=== PATIENT | female | born 2000 | race Caucasian/White ===

== ENCOUNTER 2025-07-20 18:25 | Emergency (ER) | payer MEDICAID, SELFPAY ==
[2025-07-20 18:51] VITALS: BP 125/85; PULSE 84; RESP 18; TEMP 37.1; O2SAT 99; BMI 37.8
--- NOTE | 2025-07-20 19:00 | XR_ITS ---
Examination: Abdomen sonogram, Limited Date and time of exam: July 20, 2023 at 1934 hours INDICATIONS: Right upper abdominal pain epigastric pain beginning 4 hours ago Technique: Real-time grajeda scale transabdominal sonographic images of the upper abdomen obtained. Findings: Negative for gallstones Gallbladder wall 0.43 cm no definite edema Common bile duct 0.3 cm Pancreatic head 1.9 cm Liver 15.2 cm fatty infiltration no focal liver lesions Normal hepatopetal portal venous flow Patent IVC IMPRESSION: Negative for gallstones Abnormally thickened gallbladder wall, clinical correlation advised, consider HIDA scan or MRCP follow-up to exclude cholecystitis
--- NOTE | 2025-07-20 19:00 | PD.EDRME ---
Rapid Medical Screening Exam [facility] Arrival date/time: 07/20/25 18:25 24F with history of marijuana use presents to ED with 1 day of RUQ/epigastric pain. Patient denies N/V, diarrhea, and dysuria. Patient is not on cycle. Mild constipation. Chief Complaint: Abdominal Pain Vital signs: Vital Signs Temperature 98.7 F 07/20/25 18:51 Pulse Rate 84 07/20/25 18:51 Respiratory Rate 18 07/20/25 18:51 Blood Pressure 125/85 H 07/20/25 18:51 Pulse Oximetry (%) 99 07/20/25 18:51 Oxygen Delivery Method Room Air 07/20/25 18:51 Exam: RUQ tenderness Clinical Impression: biliary disease vs pancreatitis vs gastritis vs gastroenteritis vs drug-adverse effect vs ab pain
[2025-07-20 19:30] LABS: Basophils # (Auto) 0.1 Thou/mm3 (0.0-0.2); Basophils % (Auto) 1 % (0-2.5); Eosinophils # (Auto) 0.0 Thou/mm3 (0.0-0.5); Eosinophils % (Auto) 0 % (0-10); Hematocrit 45.1 % (36.0-46.0); Hemoglobin 14.9 g/dL (12.0-16.0); Immature Granulocytes Auto 0.05 Thou/mm3 (0.00-0.00); Lymphocytes # (Auto) 2.6 Thou/mm3 (1.0-4.8); Lymphocytes % (Auto) 24 % (10-50); Mean Corpuscular HGB Conc 33.0 g/dl (31.0-37.0); Mean Corpuscular Hemoglobin 31.2 pg (25.0-35.0); Mean Corpuscular Volume 95 fL (80-100); Monocytes # (Auto) 0.9 Thou/mm3 (0.0-0.8); Monocytes % (Auto) 8 % (0-12); Neutrophils # (Auto) 7.0 Thou/mm3 (1.8-7.7); Neutrophils % (Auto) 66 % (37-80); Nucleated Red Blood Cell # 0.00 Thou/mm3 (0.00-0.00); Nucleated Red Blood Cell % 0 /100 WBC (0); Platelet Count 211 Thou/mm3 (140-440); RDW Standard Deviation 40.6 fL (36.4-46.3); Red Blood Count 4.77 Miln/mm3 (4.00-5.20); White Blood Count 10.6 Thou/mm3 (3.6-11.0)
[2025-07-20] MEDS: FAMOTIDINE 20 MG TABLET 40 MG PO (19:48)
[2025-07-20] MEDS: MG HYD/AL HYD/SIME (Maalox Reg) SUSP 30 ML UDC PO (19:48)
[2025-07-20 19:49] LABS: Alanine Aminotransferase 26 U/L (10-49); Albumin, Serum 4.3 gm/dL (3.5-5.0); Albumin/Globulin Ratio 1.8 (1.2-2.2); Alkaline Phosphatase 58 U/L (46-116); Anion Gap 7 (7-16); Aspartate Amino Transferase 22 U/L (0-34); BUN/Creatinine Ratio 7 Ratio (12-20); Bilirubin,Total 0.2 mg/dL (0.3-1.2); Blood Urea Nitrogen 7 mg/dL (9-23); Calcium 9.5 mg/dL (8.3-10.6); Calcium (Corrected) 9.5 mg/dL (8.5-10.1); Carbon Dioxide 30.2 mMol/L (20.0-31.0); Chloride 105 mMol/L (98-107); Creatinine (Component) 1.0 mg/dL (0.6-1.3); Estimated Creatinine Clearance 99.6 mL/min (>60); Globulin 2.4 gm/dL (2.3-3.5); Glucose 108 mg/dL (74-106); Lipase 25 U/L (12-53); Osmolality,Calculated 282 (275-295); Potassium 4.7 mMol/L (3.4-5.1); Sodium 142 mMol/L (136-145); Total Protein 6.7 gm/dL (5.7-8.2); eGFR > 60 See Note
[2025-07-20 20:04] LABS: Collection Type, Urine Clean Catch
[2025-07-20 20:18] LABS: HCG Qualitative,Urine Negative
[2025-07-20 20:20] LABS: Bacteria,Urine Rare; Bilirubin,Urine Negative (Negative); Blood,Urine Negative (Negative); Clarity,Urine Clear (Clear/Hazy); Color,Urine Lt-Yellow (Lt Yel-Yel); Culture Indicated,Urine Not Indicated; Glucose, Urine Negative (Negative); Ketones,Urine Negative (Negative); Leukocyte Esterase,Urine Negative (Negative); Nitrite,Urine Negative (Negative); PH,Urine 7.0 (5.0-7.0); Protein,Urine Negative (Neg - Trace); RBC,Urine 1 /hpf (0-3); Specific Gravity,Urine 1.014 (1.001-1.035); Squamous Epithelial Cell,Urine 5 /hpf (0-5); Urobilinogen,Urine Negative mg/dL (0.0-1.0); WBC,Urine 1 /hpf (0-5)
--- NOTE | 2025-07-20 21:03 | EDNOTE_ITS ---
ED Abdominal Pain RME/HPI General Chief Complaint: Abdominal Pain Stated complaint: EPIGASTRIC PAIN Arrival date/time: 07/20/25 18:25 RME / HPI RME / HPI narrative: 07/20/25 18:25 24F with history of marijuana use presents to ED with 1 day of RUQ/epigastric pain. Patient denies N/V, diarrhea, and dysuria. Patient is not on cycle. Mild constipation. Dr. Reinoso?s Main ED Evaluation: 24yo female with no significant past medical history presents to the ED for a chief complaint of epigastric pain x 4-5 hours. Patient describes the pain as tight in nature. No radiation or migration. Patient denies any N/V, fever, chills, heartburn, or any other associated symptoms. Patient now reports she is pain-free. NKA. Related Data Home Medications ?Medication ?Instructions ?Recorded ?Confirmed prenat.vits,june,hwo-vqxy-flnqf 1 tab PO QDAY 02/18/23 04/10/23 Allergies Allergy/AdvReac Type Severity Reaction Status Date / Time No Known Allergies Allergy Verified 07/20/25 18:28 Review of Systems Review of Systems Systems Reviewed: All systems reviewed, normal except as documented Past Medical History Past Medical History NEUROLOGIC: Negative Neurological Disorders or Seizures CARDIAC: Positive Cardiac Disorders (PIH IN PREVIOUS ); Negative Congestive Heart Failure RESPIRATORY: Negative Chronic Obstructive Pulmonary Disease (COPD) GASTROINTESTINAL: Negative Gastrointestinal Disorders or Hepatitis GENITOURINARY: Negative Genitourinary Disorders or Renal Disease REPRODUCTIVE: Positive Previous Pregnancies (X2) MUSCULOSKELETAL: Negative Musculoskeletal Disorders ENDOCRINE: Negative Endocrine Disorders, Diabetes Mellitus Type 1 or Diabetes Mellitus Type 2 HEMATOLOGIC: Negative Blood Disorders OTHER HISTORY: Positive Hospitalization (CHILDBIRTH); Negative Autoimmune Disease, Down Syndrome, Developmental Delay, Shingles, Falls, Blood Transfusions, Blood Transfusion Reaction, Anesthesia Reactions, Organ Transplant, Chemotherapy, Radiation Therapy, Hyperbaric Therapy, MRSA, VRSA, Vancomycin-Resistant Enterococci, Human Immunodeficiency Virus (HIV), Chicken Pox, Measles, Mumps, Rubella (Vietnamese Measles), Pertussis, Clostridium Difficile or Cancer Family History FAMILY HISTORY: Positive Family Cancer (MOTHER AND GRANDMOTHER-OVARIAN) and Family Surgery (MOTHER-SX D/T CANCER); Negative Family Psychiatric Problems, Family Respiratory Disorders, Family Cardiac Disorders, Family Gastrointestinal Problems or Family Anesthesia Reaction Surgical History SURGICAL: Negative Section or Organ Transplant Social History SMOKING STATUS: Current every day smoker SECOND HAND EXPOSURE: No ED Exam Narrative Physical exam: Generally patient is alert in no obvious distress, heart regular rate and rhythm, lungs clear to auscultation equal bilaterally, abdomen soft bowel sounds present nondistended nontender currently Course Quality Measures none Orders Category Date Time Status US gall bladder Stat Exams 07/20/25 19:00 Completed CBC Stat Lab 07/20/25 19:15 Completed CMP [Comprehensive Metabolic Panel] Stat Lab 07/20/25 19:15 Completed HCG Qualitative,Urine Stat Lab 07/20/25 19:51 Completed Lipase Stat Lab 07/20/25 19:15 Completed Urinalysis, C/S if Indicated Stat Lab 07/20/25 19:51 Completed Famotidine [Pepcid] Med 07/20/25 19:00 Discontinued 40 mg PO X1 ONE mg Hyd/Al Hyd/Koki Susp [Maalox Susp] Med 07/20/25 19:00 Discontinued 30 ml PO X1 ONE Vital Signs Vital signs: Vital Signs Temperature 98.7 F 07/20/25 18:51 Pulse Rate 84 07/20/25 18:51 Respiratory Rate 18 07/20/25 18:51 Blood Pressure 125/85 H 07/20/25 18:51 Pulse Oximetry (%) 99 07/20/25 18:51 Oxygen Delivery Method Room Air 07/20/25 18:51 Abdominal Pain MDM MDM Narrative MDM Narrative:: Scribe Attestation: 07/20/25 - Paradise Amado am scribing for and in the presence of Dr. Reinoso. I interpreted all lab work. There is no leukocytosis. LFTs were normal. was negative. Urine showed no infection. Patient was counseled on the need to avoid hot spicy greasy fatty foods. She may use [id number] Maalox or Mylanta as needed if pain returns. She may follow-up with her doctor as needed for further treatment or evaluation. Gallbladder ultrasound showed no stones with a gallbladder wall thickness of 4 mm. No Enrique cholecystic fluid. Common bile duct was normal. Patient data External records reviewed:: [facility] previous records (Per chart review, patient has no relevant previous ED visits.) Clinical information provided by:: patient Social determinants that could affect healthcare access:: none Patient has the following chronic illnesses:: none How is presenting disease/condition affected by chronic disease/condition?: no chronic disease Evaluation data The following diagnostics were reviewed and interpreted by me:: lab results and radiology exam(s) Lab and/or radiology exams considered but not ordered:: none Interpretation Summary: [facility] Report Signed Patient: JASMINE ECHOLS Record#: [id number] Birthdate: 2000 Age/Sex: 24 / F Location: [facility] Attending Dr: Ordering Physician: Samir Diop PA-C Date of Service: 07/20/25 Procedure(s): US gall bladder Accession Number(s): [id number] cc: Mynor Ocampo MD; NO PRIMARY/FAMILY,PHYSICIAN; Samir Diop PA-C~ Examination: Abdomen sonogram, Limited Date and time of exam: July 20, 2023 at 1934 hours INDICATIONS: Right upper abdominal pain epigastric pain beginning 4 hours ago Technique: Real-time grajeda scale transabdominal sonographic images of the upper abdomen obtained. Findings: Negative for gallstones Gallbladder wall 0.43 cm no definite edema Common bile duct 0.3 cm Pancreatic head 1.9 cm Liver 15.2 cm fatty infiltration no focal liver lesions Normal hepatopetal portal venous flow Patent IVC IMPRESSION: Negative for gallstones Abnormally thickened gallbladder wall, clinical correlation advised, consider HIDA scan or MRCP follow-up to exclude cholecystitis Dictated By: Mynor Ocampo MD Signed By: <Electronically signed by Mynor Ocampo MD in OV> 07/20/252055 Medications / Prescriptions Medications or Prescriptions considered but not ordered:: none Medication administrations:: Medication Administration History Discontinued Medications Al Hydrox/Mg Hydrox/Simethicone (Mg Hyd/Al Hyd/Koki (Maalox Reg) Susp 30 Ml Udc) 30 ml PO X1 ONE Stop: 07/20/25 19:01 Last Admin: 07/20/25 19:48 Dose: 30 ml Documented By: JUAN Famotidine (Famotidine 20 Mg Tablet) 40 mg PO X1 ONE Stop: 07/20/25 19:01 Last Admin: 07/20/25 19:48 Dose: 40 mg Documented By: JUAN see above Consultations Consultation(s) initiated? (list below): No Diagnosis Differential diagnosis abdominal pain: other (See MDM) Most likely diagnosis given after review of the tests above:: see clinical impression below Admission Indicated Admission indicated?: not indicated Admission Request Was there a request for admission?: No Disposition Plan Disposition Plan: Discharge Discharge Attestation Discharge Attestation: The patient and all family members were given an opportunity to ask questions and understood the discharge instructions. Discharge instructions specifically effects, indications for sooner follow up or return to the emergency department, and the expected course of current diagnosis. Patient condition: Stable Discharge Plan Plan Patient Disposition: HOME (Self Care) Prescriptions/Referrals Prescriptions/Med Rec: No Action prenat.vits,june,piu-fkha-yfyyj Tablet 1 tab PO QDAY Referrals: No Primary/Family,Physician [Primary Care Provider] - In 1 week Problem List Clinical Impression: Abdominal pain Patient/Caregiver Discharge Instructions Education Materials: Abdominal Pain Additional Instructions: You may use [id number] Maalox or Mylanta if pain returns. Avoid hot spicy greasy fatty foods. Follow-up with your doctor as needed. Print Language: Japanese Stand Alone Forms: Ivette Award Info., Patient Portal Info Letter
[2025-07-20 21:14] VITALS: BP 130/83; PULSE 77; RESP 18; O2SAT 98
== END 2025-07-20 21:20 | disposition home or self-care (01) ==
PROVIDERS: Physician Assistant; Emergency Provider Emergency Medicine
DX: K59.00 Constipation, unspecified (principal)
CPT/HCPCS: 36415; 76705; 80053; 81001; 81025; 83690; 85025; 99283; A9270

== ENCOUNTER 2025-08-24 08:32 | Emergency (ER) | payer MEDICAID, SELFPAY ==
[2025-08-24 08:33] VITALS: BMI 40.7
[2025-08-24 08:47] VITALS: BP 109/74; PULSE 81; RESP 18; TEMP 36.6; O2SAT 99
[2025-08-24] MEDS: ONDANSETRON ODT 4 MG TABRAP PO (08:56)
[2025-08-24 09:18] LABS: Collection Type, Urine Clean Catch
[2025-08-24 09:28] LABS: HCG Qualitative,Urine Negative
[2025-08-24 09:30] LABS: Basophils # (Auto) 0.0 Thou/mm3 (0.0-0.2); Basophils % (Auto) 0 % (0-2.5); Eosinophils # (Auto) 0.0 Thou/mm3 (0.0-0.5); Eosinophils % (Auto) 0 % (0-10); Hematocrit 46.0 % (36.0-46.0); Hemoglobin 15.5 g/dL (12.0-16.0); Immature Granulocytes Auto 0.05 Thou/mm3 (0.00-0.00); Lymphocytes # (Auto) 2.0 Thou/mm3 (1.0-4.8); Lymphocytes % (Auto) 21 % (10-50); Mean Corpuscular HGB Conc 33.7 g/dl (31.0-37.0); Mean Corpuscular Hemoglobin 31.5 pg (25.0-35.0); Mean Corpuscular Volume 94 fL (80-100); Monocytes # (Auto) 0.7 Thou/mm3 (0.0-0.8); Monocytes % (Auto) 7 % (0-12); Neutrophils # (Auto) 6.9 Thou/mm3 (1.8-7.7); Neutrophils % (Auto) 71 % (37-80); Nucleated Red Blood Cell # 0.00 Thou/mm3 (0.00-0.00); Nucleated Red Blood Cell % 0 /100 WBC (0); Platelet Count 202 Thou/mm3 (140-440); RDW Standard Deviation 40.0 fL (36.4-46.3); Red Blood Count 4.92 Miln/mm3 (4.00-5.20); White Blood Count 9.7 Thou/mm3 (3.6-11.0)
[2025-08-24 09:34] LABS: Amphetamine/Methamp Scrn,U Negative (Negative); Barbiturate Screen,Urine Negative (Negative); Benzodiazepines Screen,Urine Negative (Negative); Benzoylecgonine Screen, Ur Negative (Negative); Fentanyl Screen,Urine Negative (Negative); Opiate Screen,Urine Negative (Negative); THC Screen,Urine Positive (Negative)
[2025-08-24 09:35] LABS: Bacteria,Urine Rare; Bilirubin,Urine Negative (Negative); Blood,Urine Negative (Negative); Color,Urine Yellow (Lt Yel-Yel); Culture Indicated,Urine Not Indicated; Glucose, Urine Negative (Negative); Ketones,Urine 3+ (Negative); Leukocyte Esterase,Urine Positive (Negative); Nitrite,Urine Negative (Negative); PH,Urine 7.0 (5.0-7.0); Protein,Urine 1+ (Neg - Trace); RBC,Urine 9 /hpf (0-3); Specific Gravity,Urine 1.027 (1.001-1.035); Squamous Epithelial Cell,Urine 41 /hpf (0-5); Urobilinogen,Urine 2.0 mg/dL (0.0-1.0); WBC,Urine 3 /hpf (0-5)
[2025-08-24 09:44] LABS: Clarity,Urine Hazy (Clear/Hazy)
[2025-08-24 09:55] LABS: Alanine Aminotransferase 45 U/L (10-49); Albumin, Serum 4.7 gm/dL (3.5-5.0); Albumin/Globulin Ratio 1.8 (1.2-2.2); Alkaline Phosphatase 56 U/L (46-116); Anion Gap 9 (7-16); Aspartate Amino Transferase 29 U/L (0-34); BUN/Creatinine Ratio 9 Ratio (12-20); Bilirubin,Total 0.7 mg/dL (0.3-1.2); Blood Urea Nitrogen 9 mg/dL (9-23); Calcium 9.3 mg/dL (8.3-10.6); Calcium (Corrected) 9.3 mg/dL (8.5-10.1); Carbon Dioxide 25.5 mMol/L (20.0-31.0); Chloride 106 mMol/L (98-107); Creatinine (Component) 1.0 mg/dL (0.6-1.3); Estimated Creatinine Clearance 100.2 mL/min (>60); Globulin 2.6 gm/dL (2.3-3.5); Glucose 114 mg/dL (74-106); Lipase 27 U/L (12-53); Osmolality,Calculated 279 (275-295); Potassium 4.1 mMol/L (3.4-5.1); Sodium 140 mMol/L (136-145); Thyroid Stimulating Hormone 2.52 uIU/mL (0.55-4.78); Total Protein 7.3 gm/dL (5.7-8.2); Troponin I < 0.002 ng/mL (0.0-0.045); eGFR > 60 See Note
--- NOTE | 2025-08-24 10:16 | EDNOTE_ITS ---
Nausea/Vomit./Diarrhea-RME/HPI General Chief complaint: Nausea/Vomiting/Diarrhea Stated complaint: nause/weak Time Seen by Provider: 08/24/25 08:41 Arrival date/time: 08/24/25 08:32 24-year-old female presents the emergency department today complains of generalized bodyaches nausea and fatigue patient for symptom onset last couple of days patient does report smoking marijuana daily reports no chest pain shortness of breath Limitations: no limitations Related Data Home Medications ?Medication ?Instructions ?Recorded ?Confirmed prenat.vits,june,xvg-pjuu-dakag 1 tab PO QDAY 02/18/23 04/10/23 Previous Rx's ?Medication ?Instructions ?Recorded ondansetron 4 mg disintegrating 4 mg PO Q8H PRN nausea and 08/24/25 tablet vomiting #10 tabs Allergies Allergy/AdvReac Type Severity Reaction Status Date / Time No Known Allergies Allergy Verified 08/24/25 08:35 Review of Systems Review of Systems Systems Reviewed: All systems reviewed, normal except as documented Constitutional Constitutional: Reports system reviewed and no additional complaints, except as documented, Denies fever(s) and Denies headache(s) Eyes Eyes: Reports system reviewed and no additional complaints, except as documented and Denies blurry vision ENT Ears, Nose, Mouth, and Throat: Reports system reviewed and no additional complaints, except as documented, Denies headache(s), Denies nasal congestion and Denies nasal discharge Cardiovascular Cardiovascular: Reports system reviewed and no additional complaints, except as documented, Denies chest pain and Denies dyspnea Respiratory Respiratory: Reports system reviewed and no additional complaints, except as documented, Denies chest congestion, Denies cough and Denies dyspnea Gastrointestinal Gastrointestinal: Reports system reviewed and no additional complaints, except as documented and Denies abdominal pain Integumentary/Breasts Skin/Breast: Reports system reviewed and no additional complaints, except as documented and Denies rash Neurologic Neurologic: Reports system reviewed and no additional complaints, except as documented, Reports as per HPI and Denies headache(s) Past Medical History Past Medical History NEUROLOGIC: Negative Neurological Disorders or Seizures CARDIAC: Positive Cardiac Disorders (PIH IN PREVIOUS ); Negative Congestive Heart Failure RESPIRATORY: Negative Chronic Obstructive Pulmonary Disease (COPD) GASTROINTESTINAL: Negative Gastrointestinal Disorders or Hepatitis GENITOURINARY: Negative Genitourinary Disorders or Renal Disease REPRODUCTIVE: Positive Previous Pregnancies (X2) MUSCULOSKELETAL: Negative Musculoskeletal Disorders ENDOCRINE: Negative Endocrine Disorders, Diabetes Mellitus Type 1 or Diabetes Mellitus Type 2 HEMATOLOGIC: Negative Blood Disorders OTHER HISTORY: Positive Hospitalization (CHILDBIRTH); Negative Autoimmune Disease, Down Syndrome, Developmental Delay, Shingles, Falls, Blood Transfusions, Blood Transfusion Reaction, Anesthesia Reactions, Organ Transplant, Chemotherapy, Radiation Therapy, Hyperbaric Therapy, MRSA, VRSA, Vancomycin-Resistant Enterococci, Human Immunodeficiency Virus (HIV), Chicken Pox, Measles, Mumps, Rubella ([place] Measles), Pertussis, Clostridium Difficile or Cancer Family History FAMILY HISTORY: Positive Family Cancer (MOTHER AND GRANDMOTHER-OVARIAN) and Family Surgery (MOTHER-SX D/T CANCER); Negative Family Psychiatric Problems, Family Respiratory Disorders, Family Cardiac Disorders, Family Gastrointestinal Problems or Family Anesthesia Reaction Surgical History SURGICAL: Negative Section or Organ Transplant Social History SMOKING STATUS: Never smoker SECOND HAND EXPOSURE: No ED Exam General Limitations: Present no limitations General appearance: Present alert and in no apparent distress Head Head exam: Present atraumatic, normocephalic and normal inspection Eye Eye exam: Present normal appearance, PERRL and EOMI ENT ENT exam: Present normal exam, normal oropharynx and mucous membranes moist Neck Neck exam: Present normal inspection, full ROM and trachea midline Chest Chest inspection: Present normal inspection and symmetric chest wall rise Respiratory Respiratory exam: Present normal lung sounds bilaterally Cardiovascular Cardiovascular exam: Present regular rate, normal rhythm and normal heart sounds Abdominal Exam Abdominal exam: Present soft and normal bowel sounds; Absent distention, tenderness, guarding, rebound, rigidity, Wiggins's sign, Rovsing's sign or tenderness at McBurney's Point Abdominal tenderness: Absent RUQ or RLQ Extremities Exam Extremities exam: Present normal inspection and full ROM Back Exam Back exam: Present normal inspection and full ROM Neurological Exam Neurological exam: Present alert, oriented X3 and CN II-XII intact Psychiatric Psychiatric exam: Present normal affect and normal mood Skin Skin exam: Present warm, dry, intact and normal color Course Quality Measures none Orders Category Date Time Status CBC Stat Lab 08/24/25 09:06 Completed Comprehensive Metabolic Panel Stat Lab 08/24/25 09:06 Completed Drug Screen,Urine Stat Lab 08/24/25 09:16 Completed HCG Qualitative,Urine Stat Lab 08/24/25 09:14 Completed Lipase Stat Lab 08/24/25 09:06 Completed TSH [Thyroid Stimulating Hormone] Stat Lab 08/24/25 09:06 Completed Troponin I Stat Lab 08/24/25 09:06 Completed UA, C/S IF [Urinalysis, C/S if Indicated] Stat Lab 08/24/25 09:14 Completed Ondansetron Odt [Zofran Odt] Med 08/24/25 08:48 Discontinued 4 mg PO X1 ONE Vital Signs Vital signs: Vital Signs Temperature 97.8 F 08/24/25 08:47 Pulse Rate 81 08/24/25 08:47 Respiratory Rate 18 08/24/25 08:47 Blood Pressure 109/74 08/24/25 08:47 Pulse Oximetry (%) 99 08/24/25 08:47 Oxygen Delivery Method Room Air 08/24/25 08:47 O2 saturation 9 9% room air within the limits Nausea/Vomiting/Diarrhea MDM Narrative MDM Narrative:: 24-year-old female presents the emergency department today complains of generalized bodyaches nausea and fatigue patient for symptom onset last couple of days patient does report smoking marijuana daily reports no chest pain shortness of breath Clinically patient well-appearing does not appear look toxic no acute distress Lab work obtained no acute emergent findings noted Patient discharged home in no distress to follow-up with primary care doctor in the next 24 to 48 hours and for any worsening symptoms to return to the ER immediately Patient data External records reviewed:: [facility] previous records Clinical information provided by:: patient Social determinants that could affect healthcare access:: none Patient has the following chronic illnesses:: none How is presenting disease/condition affected by chronic disease/condition?: no chronic disease Evaluation data The following diagnostics were reviewed and interpreted by me:: lab results Lab and/or radiology exams considered but not ordered:: Labs obtained Interpretation Summary: Reviewed by me Medications / Prescriptions Medications / Prescriptions considered but not ordered:: Given Medication administrations:: Medication Administration History Discontinued Medications Ondansetron HCl (Ondansetron Odt 4 Mg Tabrap) 4 mg PO X1 ONE; Protocol Stop: 08/24/25 08:49 Last Admin: 08/24/25 08:56 Dose: 4 mg Documented By: AGUS Given Consultations Consultation(s) initiated? (list below): No Diagnosis Nausea Differential Diagnosis: traveler's diarrhea, food poisoning and gastroenteritis Most likely diagnosis given after review of the tests above:: Nausea, generalized bodyaches Admission Indicated Admission indicated?: not indicated Admission Request Was there a request for admission?: No Disposition Plan Disposition Plan: Discharge Discharge Attestation Discharge Attestation: The patient and all family members were given an opportunity to ask questions and understood the discharge instructions. Discharge instructions specifically effects, indications for sooner follow up or return to the emergency department, and the expected course of current diagnosis. Patient condition: Stable Discharge Plan Plan Patient Disposition: HOME (Self Care) Discharge Disposition comment: stable Prescriptions/Referrals Prescriptions/Med Rec: New ondansetron 4 mg tablet,disintegrating 4 mg PO Q8H PRN (Reason: nausea and vomiting) Qty: 10 0RF No Action prenat.vits,june,vfv-mniy-orpxd Tablet 1 tab PO QDAY Referrals: Darinel Fox MD [Primary Care Provider, Family Practice] - In 1 week Problem List Clinical Impression: Body aches, Nausea, Cannabis abuse Patient/Caregiver Discharge Instructions Education Materials: Medicine for Pain Additional Instructions: Please follow up with your primary care doctor in the next 24-48hrs for any worsening symptoms return here immediately Print Language: Bolivian Stand Alone Forms: Ivette Award Info., Patient Portal Info Letter PA/HONEY LIQUEFIER Supervising Physician PA/GIOVANI Supervising Physician: dr azevedo
== END 2025-08-24 10:31 | disposition home or self-care (01) ==
PROVIDERS: Emergency Provider Nurse Practitioner Primary Care; PCP Family Medicine
DX: R11.2 Nausea with vomiting, unspecified (principal); R52 Pain, unspecified; F12.10 Cannabis abuse, uncomplicated
CPT/HCPCS: 36415; 80053; 80307; 81001; 81025; 83690; 84443; 84484; 85025; 99282; Q0162